=== PATIENT | female | born 1995 | race African-American/Black ===

== ENCOUNTER 2016-11-09 13:08 | Emergency (ER) | payer OTHER ==
[2016-11-09] MEDS ORDERED: IBUPROFEN 400 MG TAB As Ordered ONE (14:48)
--- NOTE | 2016-11-09 14:56 | REP ---
RIGHT SHOULDER SERIES: Three views. HISTORY: Trauma. FINDINGS: The right glenohumeral and acromioclavicular joints are normally aligned. No fracture or subluxation is seen. IMPRESSION: Negative views of the right shoulder. Signed by Rohit Baer MD 11/09/2016 03:10 P
--- NOTE | 2016-11-09 14:56 | REP ---
RIGHT HAND SERIES: Four views. HISTORY: Trauma. FINDINGS: Four views of the right hand show normal bones, joints, and soft tissues. No fracture or subluxation is seen. IMPRESSION: Negative right hand views. Signed by Rohit Baer MD 11/09/2016 03:10 P
--- NOTE | 2016-11-09 16:22 | EDDOCDS ---
Nurse's Notes [facility] Name: Mary Johnson Age: 21 yrs Sex: Female : 1995 Arrival Date: 11/09/2016 Time: 13:08 Bed 15 [facility] Contusion of right shoulder;Contusion of right hand Presentation: 11/09 13:16 Presenting complaint: Patient states: fell yesterday- slipped on ice injuring right srm shoulder and clavicle area. hit head no LOC. Adult Sepsis Screening: The patient does not have new or worsening altered mentation. Patient's respiratory rate is less than 22. Systolic blood pressure is greater than 100. Patient has a qSOFA score of 0- Negative Sepsis Screen. Suicide/Homicide risk assessment- the patient denies having any suicidal and/or homicidal ideations and does not present with any other emotional, behavioral or mental health complaints. 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 Transition of care: patient was not received from another setting of care. 13:16 Acuity: FLO Level [address] [facility] 13:16 Method Of Arrival: Walkin/Carried/Asstd [facility] Triage Assessment: 13:18 General: Appears in no apparent distress, Behavior is appropriate for age, cooperative. srm Pain: Pain currently is 8 out of 10 on a pain scale. HIV screening NA for this visit Offered previously. Musculoskeletal: Reports right shoulder clavicle pain. 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 implanon 2. voltaren gel prn - PMHx: none; - PSHx: wisdom teeth; - Social history: Smoking status: Patient states was never smoker of tobacco. No barriers to communication noted, The patient speaks fluent Faroese, Speaks appropriately for age. - Family history: Not pertinent. - : The pt / caregiver states he / she is not on anticoagulants. Home medication list is obtained from the patient. - Exposure Risk Screening:: None identified. Screenin:09 Screening information is obtained from the patient. Fall risk: No risks identified. [facility] Assistance ADL's: requires no assistance with activities of daily living. Abuse/DV Screen: The patient / caregiver reports he/she is: not in a situation that causes fear, pain or injury. Nutritional screening: No deficits noted. Advance Directives: There is no active DNR order. home support is adequate. Assessment: 15:09 General: Appears in no apparent distress, comfortable, Behavior is cooperative. Pain: [facility] Location: right arm Pain currently is 6 out of 10 on a pain scale. Respiratory: Airway is patent Respiratory effort is even, unlabored. Derm: Skin is normal. Musculoskeletal: Circulation, motion, and sensation intact sling applied to right UE. Vital Signs: 13:09 BP 112 / 79 LA Sitting (auto/reg); Pulse 84; Resp 16; Temp 99.2(O); Pulse Ox 100% on rs6 R/A; Weight 68.04 kg (R); Height 5 ft. 7 in. (170.18 cm) (R); Pain 8/10; 15:09 BP 113 / 75; Pulse 78; Resp 80; Temp 99; Pulse Ox 97% ; Pain 5/10; cjh 13:09 Body Mass Index 23.49 (68.04 kg, 170.18 cm) [facility] Vitals: 13:09 Log In Time: November 09, 2016 at 13:09. [facility] ED Course: 13:09 Patient visited by Elva Marsh PCA. rs6 13:09 [facility] is Private Physician. rs6 13:09 Patient moved to Waiting rs6 13:11 Patient visited by Elva Marsh PCA. rs6 13:11 Patient moved to Pre RCE rs6 13:17 Triage Initiated srm 13:51 Dawood Prado FNP [facility] ke 13:51 Patient visited by Dawood Prado FNP. ke 13:51 Patient visited by Dawood Prado FNP. ke 13:51 Patient moved to 15 3 14:18 Patient visited by Dawood Prado FNP. ke 14:26 [facility] is Referral Physician. ke 14:34 Patient name changed from Mary\S\R\S\Sumler\S\ to Mary\S\Giovanna\S\Sumler. EDMS 14:34 [facility] Payment Agreement was scanned into [employer] and attached to record. 15:09 The patient / caregiver is instructed regarding the plan of care and ED course. [facility] 15:09 No IV's were initiated during this patient's visit. No procedures done that require [facility] assistance. 15:25 Shoulder, Complete Returned. EDMS 15:25 Hand, Complete Returned. EDMS Administered Medications: 15:09 Drug: Ibuprofen 400 mg [ibuprofen 400 mg tablet (1 tabs)] Route: PO; [facility] 15:13 Follow up: Response: Confirmed pt not driving.; Pt left department before re-evaluation [facility] is appropriate Order Results: Radiology Order: Shoulder, Complete Test: Shoulder, Complete REASON FOR EXAMINATION: Trauma; RIGHT SHOULDER SERIES: Three views.; ; HISTORY: Trauma.; ; FINDINGS: The right glenohumeral and acromioclavicular joints are normally; aligned. No fracture or subluxation is seen.; ; IMPRESSION:; ; Negative views of the right shoulder.; ; ; Signed by; Rohit Baer MD 11/09/2016 03:10 P; Radiology Order: Hand, Complete Test: Hand, Complete REASON FOR EXAMINATION: Trauma; RIGHT HAND SERIES: Four views.; ; HISTORY: Trauma.; ; FINDINGS: Four views of the right hand show normal bones, joints, and soft; tissues. No fracture or subluxation is seen.; ; IMPRESSION:; ; Negative right hand views.; ; ; Signed by; Rohit Baer MD 11/09/2016 03:10 P; Outcome: 14:27 Discharge ordered by Provider. 15:09 Discharge Assessment: Patient awake, alert and oriented x 3. No cognitive and/or [facility] functional deficits noted. Patient verbalized understanding of disposition instructions. patient administered narcotics - no. The following High Risk Discharge criteria are identified: None. Discharged to home ambulatory. Condition: good Condition: stable Condition: improved. Discharge instructions given to patient, Instructed on discharge instructions, follow up and referral plans. medication usage, wound care, Demonstrated understanding of instructions, medications, Pt was receptive of discharge instructions/ teaching. Prescriptions given X 1. No special radiology studies were completed. Property :Personal belongings accompany Pt. 16:22 Patient left the ED. [facility] Signatures: Dispatcher [employer] EDMS Mitzi Jackson RN RN Pepe Campos, Dino Reg lg Dawood Prado, OVERHEAD CRANE INSPECTOR OVERHEAD CRANE INSPECTOR Yesenia Beauchamp RN RN [facility] Elva Marsh, ROLLER STAINER ROLLER STAINER rs6 Farman,Darci,RN RN jf3 MTDD
--- NOTE | 2016-11-09 16:22 | EDDOCDS ---
Physician Documentation [facility] Name: Mary Johnson Age: 21 yrs Sex: Female : 1995 Arrival Date: 11/09/2016 Time: 13:08 Bed 15 Private MD: [facility] [place] Disposition: 11/09/16 14:27 Discharged to Home/Self Care. Impression: Contusion of right shoulder, Contusion of right hand. - Condition is Stable. - Discharge Instructions: Elastic Bandage and RICE, Hand Contusion, Shoulder Pain, Arm Sling Use, [id number]. - Prescriptions for Ibuprofen 600 mg Oral Tablet - take 1 tablet by ORAL route every 6 hours As needed take with food; 30 tablet. - Medication Reconciliation, Local Pharmacy Hours form. - Follow up: [facility] [place]; When: 2 - 3 days; Reason: Recheck today's complaints, Continuance of care. - Problem is new. - Symptoms are unchanged. Historical: - Allergies: no known allergies; - Home Meds: 1. implanon 2. voltaren gel prn - PMHx: none; - PSHx: wisdom teeth; - Social history: Smoking status: Patient states was never smoker of tobacco. No barriers to communication noted, The patient speaks fluent Setswana, Speaks appropriately for age. - Family history: Not pertinent. - : The pt / caregiver states he / she is not on anticoagulants. Home medication list is obtained from the patient. - Exposure Risk Screening:: None identified. 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 7 in. (170.18 cm) (R); Pain 8/10; 15:09 BP 113 / 75; Pulse 78; Resp 80; Temp 99; Pulse Ox 97% ; Pain 5/10; cjh 13:09 Body Mass Index 23.49 (68.04 kg, 170.18 cm) rs6 MDM: 14:01 Shoulder, Complete Ordered. EDMS 14:09 Hand, Complete Ordered. EDMS 14:20 Sling ordered. ke 14:20 Ibuprofen 400 mg PO once ordered. ke 14:27 Financial registration complete. 14:34 [facility] Payment Agreement was scanned into [employer] and attached to record. Administered Medications: 15:09 Drug: Ibuprofen 400 mg [ibuprofen 400 mg tablet (1 tabs)] Route: PO; [facility] 15:13 Follow up: Response: Confirmed pt not driving.; Pt left department before re-evaluation [facility] is appropriate Signatures: Dispatcher [employer] EDMS Mitzi Jackson RN RN Pepe Campos, Reg Reg Dawood Prado, CLOTHES MODEL Yesenia Strange RN RN [facility] The chart was reviewed and I authenticate all verbal orders and agree with the evaluation and treatment provided.Attachments: 14:34 [facility] Payment Agreement lg MTDD
--- NOTE | 2016-11-11 17:23 | EDDOCDS ---
Nurse's Notes [facility] Name: Mary Johnson Age: 21 yrs Sex: Female : 1995 Arrival Date: 11/09/2016 Time: 13:08 Bed 15 [facility] Diagnosis: Contusion of right shoulder;Contusion of right hand Presentation: 11/09 13:16 Presenting complaint: Patient states: fell yesterday- slipped on ice injuring right srm shoulder and clavicle area. hit head no LOC. Adult Sepsis Screening: The patient does not have new or worsening altered mentation. Patient's respiratory rate is less than 22. Systolic blood pressure is greater than 100. Patient has a qSOFA score of 0- Negative Sepsis Screen. Suicide/Homicide risk assessment- the patient denies having any suicidal and/or homicidal ideations and does not present with any other emotional, behavioral or mental health complaints. 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 Transition of care: patient was not received from another setting of care. 13:16 Acuity: FLO Level 4 [facility] 13:16 Method Of Arrival: Walkin/Carried/Asstd [facility] Triage Assessment: 13:18 General: Appears in no apparent distress, Behavior is appropriate for age, cooperative. srm Pain: Pain currently is 8 out of 10 on a pain scale. HIV screening NA for this visit Offered previously. Musculoskeletal: Reports right shoulder clavicle pain. 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 implanon 2. voltaren gel prn - PMHx: none; - PSHx: wisdom teeth; - Social history: Smoking status: Patient states was never smoker of tobacco. No barriers to communication noted, The patient speaks fluent Indonesian, Speaks appropriately for age. - Family history: Not pertinent. - : The pt / caregiver states he / she is not on anticoagulants. Home medication list is obtained from the patient. - Exposure Risk Screening:: None identified. Screenin:09 Screening information is obtained from the patient. Fall risk: No risks identified. [facility] Assistance ADL's: requires no assistance with activities of daily living. Abuse/DV Screen: The patient / caregiver reports he/she is: not in a situation that causes fear, pain or injury. Nutritional screening: No deficits noted. Advance Directives: There is no active DNR order. home support is adequate. Assessment: 15:09 General: Appears in no apparent distress, comfortable, Behavior is cooperative. Pain: [facility] Location: right arm Pain currently is 6 out of 10 on a pain scale. Respiratory: Airway is patent Respiratory effort is even, unlabored. Derm: Skin is normal. Musculoskeletal: Circulation, motion, and sensation intact sling applied to right UE. Vital Signs: 13:09 BP 112 / 79 LA Sitting (auto/reg); Pulse 84; Resp 16; Temp 99.2(O); Pulse Ox 100% on rs6 R/A; Weight 68.04 kg (R); Height 5 ft. 7 in. (170.18 cm) (R); Pain 8/10; 15:09 BP 113 / 75; Pulse 78; Resp 80; Temp 99; Pulse Ox 97% ; Pain 5/10; cjh 13:09 Body Mass Index 23.49 (68.04 kg, 170.18 cm) [facility] Vitals: 13:09 Log In Time: November 09, 2016 at 13:09. [facility] ED Course: 13:09 Patient visited by Elva Marsh PCA. rs6 13:09 [facility] is Private Physician. rs6 13:09 Patient moved to Waiting rs6 13:11 Patient visited by Elva Marsh PCA. rs6 13:11 Patient moved to Pre RCE rs6 13:17 Triage Initiated srm 13:51 [facility] ke 13:51 Patient visited by Dawood Prado FNP. ke 13:51 Patient visited by Dawood Prado FNP. ke 13:51 Patient moved to 15 3 14:18 Patient visited by Dawood Prado FNP. ke 14:26 [facility] is Referral Physician. ke 14:34 Patient name changed from Mary\S\R\S\Sumler\S\ to Mary\S\Giovanna\S\Sumler. EDMS 14:34 [facility] [place] [place] Payment Agreement was scanned into [employer] and attached to record. 15:09 The patient / caregiver is instructed regarding the plan of care and ED course. [facility] 15:09 No IV's were initiated during this patient's visit. No procedures done that require [facility] assistance. 15:25 Shoulder, Complete Returned. EDMS 15:25 Hand, Complete Returned. EDMS 11/10 12:20 T-Sheet-- Draft Copy was scanned into [employer] and attached to record. gb Administered Medications: 11/09 15:09 Drug: Ibuprofen 400 mg [ibuprofen 400 mg tablet (1 tabs)] Route: PO; [facility] 15:13 Follow up: Response: Confirmed pt not driving.; Pt left department before re-evaluation [facility] is appropriate Order Results: Radiology Order: Shoulder, Complete Test: Shoulder, Complete REASON FOR EXAMINATION: Trauma; RIGHT SHOULDER SERIES: Three views.; ; HISTORY: Trauma.; ; FINDINGS: The right glenohumeral and acromioclavicular joints are normally; aligned. No fracture or subluxation is seen.; ; IMPRESSION:; ; Negative views of the right shoulder.; ; ; Signed by; Rohit Baer MD 11/09/2016 03:10 P; Radiology Order: Hand, Complete Test: Hand, Complete REASON FOR EXAMINATION: Trauma; RIGHT HAND SERIES: Four views.; ; HISTORY: Trauma.; ; FINDINGS: Four views of the right hand show normal bones, joints, and soft; tissues. No fracture or subluxation is seen.; ; IMPRESSION:; ; Negative right hand views.; ; ; Signed by; Rohit Baer MD 11/09/2016 03:10 P; Outcome: 14:27 Discharge ordered by Provider. ke 15:09 Discharge Assessment: Patient awake, alert and oriented x 3. No cognitive and/or [facility] functional deficits noted. Patient verbalized understanding of disposition instructions. patient administered narcotics - no. The following High Risk Discharge criteria are identified: None. Discharged to home ambulatory. Condition: good Condition: stable Condition: improved. Discharge instructions given to patient, Instructed on discharge instructions, follow up and referral plans. medication usage, wound care, Demonstrated understanding of instructions, medications, Pt was receptive of discharge instructions/ teaching. Prescriptions given X 1. No special radiology studies were completed. Property :Personal belongings accompany Pt. 16:22 Patient left the ED. [facility] Signatures: Dispatcher [facility] Mitzi Jackson RN RN srm Barnhardt, Gloria, Reg Reg Pepe Mendez, Reg Reg Dawood Ward, RIBBON SWEATBAND OPERATOR RIBBON SWEATBAND OPERATOR Yesenia Beauchamp,RN RN cjh Elva Marsh, HIDE INSPECTOR HIDE INSPECTOR rs6 Darci Hsu,RN RN jf3 Chart Complete MTDD
--- NOTE | 2016-11-11 17:23 | EDDOCDS ---
Physician Documentation [facility] Name: Mary Johnson Age: 21 yrs Sex: Female : 1995 Arrival Date: 11/09/2016 Time: 13:08 Bed 15 Private MD: [facility] [place] Disposition: 11/09/16 14:27 Discharged to Home/Self Care. Impression: Contusion of right shoulder, Contusion of right hand. - Condition is Stable. - Discharge Instructions: Elastic Bandage and RICE, Hand Contusion, Shoulder Pain, Arm Sling Use, [id number]. - Prescriptions for Ibuprofen 600 mg Oral Tablet - take 1 tablet by ORAL route every 6 hours As needed take with food; 30 tablet. - Medication Reconciliation, Local Pharmacy Hours form. - Follow up: [facility] [place]; When: 2 - 3 days; Reason: Recheck today's complaints, Continuance of care. - Problem is new. - Symptoms are unchanged. Historical: - Allergies: no known allergies; - Home Meds: 1. implanon 2. voltaren gel prn - PMHx: none; - PSHx: wisdom teeth; - Social history: Smoking status: Patient states was never smoker of tobacco. No barriers to communication noted, The patient speaks fluent Romansh, Speaks appropriately for age. - Family history: Not pertinent. - : The pt / caregiver states he / she is not on anticoagulants. Home medication list is obtained from the patient. - Exposure Risk Screening:: None identified. 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 7 in. (170.18 cm) (R); Pain 8/10; 15:09 BP 113 / 75; Pulse 78; Resp 80; Temp 99; Pulse Ox 97% ; Pain 5/10; cjh 13:09 Body Mass Index 23.49 (68.04 kg, 170.18 cm) rs6 MDM: 14:01 Shoulder, Complete Ordered. EDMS 14:09 Hand, Complete Ordered. EDMS 14:20 Sling ordered. ke 14:20 Ibuprofen 400 mg PO once ordered. ke 14:27 Financial registration complete. 14:34 [facility] Payment Agreement was scanned into [employer] and attached to record. 11/10 12:20 T-Sheet-- Draft Copy was scanned into [employer] and attached to record. gb Administered Medications: 11/09 15:09 Drug: Ibuprofen 400 mg [ibuprofen 400 mg tablet (1 tabs)] Route: PO; [facility] 15:13 Follow up: Response: Confirmed pt not driving.; Pt left department before re-evaluation [facility] is appropriate Signatures: Dispatcher [employer] EDMS Mitzi Jackson, RN RN srm Keyona Rodriguez, Reg Reg gb Pepe Gonzalez, Reg Reg lg Dawood Prado, CHILD CARE EDUCATION COORDINATOR CHILD CARE EDUCATION COORDINATOR Yesenia BeauchampRN RN [facility] The chart was reviewed and I authenticate all verbal orders and agree with the evaluation and treatment provided.Attachments: 14:34 [facility] Payment Agreement 11/10 12:20 T-Sheet-- Draft Copy Chart Complete MTDD
--- NOTE | 2016-11-11 17:23 | EDDOCDS ---
Physician Documentation [facility] Name: Mary Johnson Age: 21 yrs Sex: Female : 1995 Arrival Date: 11/09/2016 Time: 13:08 Bed 15 Private MD: [facility] [place] Disposition: 11/09/16 14:27 Discharged to Home/Self Care. Impression: Contusion of right shoulder, Contusion of right hand. - Condition is Stable. - Discharge Instructions: Elastic Bandage and RICE, Hand Contusion, Shoulder Pain, Arm Sling Use, [id number]. - Prescriptions for Ibuprofen 600 mg Oral Tablet - take 1 tablet by ORAL route every 6 hours As needed take with food; 30 tablet. - Medication Reconciliation, Local Pharmacy Hours form. - Follow up: [facility] [place]; When: 2 - 3 days; Reason: Recheck today's complaints, Continuance of care. - Problem is new. - Symptoms are unchanged. Historical: - Allergies: no known allergies; - Home Meds: 1. implanon 2. voltaren gel prn - PMHx: none; - PSHx: wisdom teeth; - Social history: Smoking status: Patient states was never smoker of tobacco. No barriers to communication noted, The patient speaks fluent Maori, Speaks appropriately for age. - Family history: Not pertinent. - : The pt / caregiver states he / she is not on anticoagulants. Home medication list is obtained from the patient. - Exposure Risk Screening:: None identified. 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 7 in. (170.18 cm) (R); Pain 8/10; 15:09 BP 113 / 75; Pulse 78; Resp 80; Temp 99; Pulse Ox 97% ; Pain 5/10; cjh 13:09 Body Mass Index 23.49 (68.04 kg, 170.18 cm) rs6 MDM: 14:01 Shoulder, Complete Ordered. EDMS 14:09 Hand, Complete Ordered. EDMS 14:20 Sling ordered. ke 14:20 Ibuprofen 400 mg PO once ordered. ke 14:27 Financial registration complete. 14:34 [facility] Payment Agreement was scanned into [employer] and attached to record. 11/10 12:20 T-Sheet-- Draft Copy was scanned into [employer] and attached to record. gb Administered Medications: 11/09 15:09 Drug: Ibuprofen 400 mg [ibuprofen 400 mg tablet (1 tabs)] Route: PO; [facility] 15:13 Follow up: Response: Confirmed pt not driving.; Pt left department before re-evaluation [facility] is appropriate Signatures: Dispatcher [employer] EDMS Mitzi Jackson, RN RN srm Keyona Rodriguez, Reg Reg gb Pepe Gonzalez, Reg Reg lg Dawood Prado, APPRAISER LAND APPRAISER LAND Yesenia BeauchampRN RN [facility] The chart was reviewed and I authenticate all verbal orders and agree with the evaluation and treatment provided.Attachments: 14:34 [facility] Payment Agreement 11/10 12:20 T-Sheet-- Draft Copy Chart Complete MTDD
== END 2016-11-09 16:22 | disposition home or self-care (01) ==
LOC: M ED 13:08
DX: S40.011A Contusion of right shoulder, initial encounter (principal); S60.221A Contusion of right hand, initial encounter; W00.0XXA Fall on same level due to ice and snow, initial encounter; Y92.410 Unspecified street and highway as the place of occurrence of the external cause; Y93.89 Activity, other specified; Y99.8 Other external cause status